=== PATIENT | female | born 1960 | race Caucasian/White ===

== ENCOUNTER → 2019-08-23 | Outpatient (CLI) | payer OTHER | END | disposition home or self-care (01) | LOC: RAH 15:53 | PROVIDERS: ATTEND Internal Medicine | DX: M25.551 Pain in right hip (principal); M25.552 Pain in left hip | CPT/HCPCS: 73522 ==

== ENCOUNTER 2023-02-19 17:48 | Emergency (ER) | payer OTHER ==
[~2023-02-19] VITALS: Ht 157.5 cm; Wt 97.1 kg
[2023-02-19] MEDS ORDERED: NAPR375T6 PO (19:24)
[2023-02-19] MEDS ORDERED: SOLU-MEDROL 125MG VIAL IM ONE (19:30)
[2023-02-19] MEDS ORDERED: KETOROLAC 30MG VIAL (30MG/ML) IM ONE (19:30)
[2023-02-19 20:11] VITALS: BP 125/62
== END 2023-02-19 20:41 | disposition home or self-care (01) ==
LOC: EDH 17:48
DX: M16.0 Bilateral primary osteoarthritis of hip (principal); I50.9 Heart failure, unspecified; E78.00 Pure hypercholesterolemia, unspecified
CPT/HCPCS: 99285; 74176; 96372 ×2; J2930; J1885